=== PATIENT | female | born 1990 | race Two or more races ===

== ENCOUNTER 2024-02-16 10:31 | Emergency (ER) | payer BC, OTHER ==
[~2024-02-16] VITALS: Ht 162.6 cm; Wt 107.5 kg
[2024-02-16 10:46] VITALS: TEMP 99.1
[2024-02-16 10:54] VITALS: BP 121/73; PULSE 91; RESP 18; O2SAT 94
[2024-02-16 12:35] LABS: Urine Bacteria None Seen /hpf (None Seen)
[2024-02-16 12:46] LABS: Urine Blood 1+ /uL (Negative); Urine Clarity Turbid (Clear); Urine Color Light-Yellow (Yellow); Urine Protein, UAD Negative (Negative); Urine Specific Gravity 1.016 (1.001-1.035); Urine Urobilinogen Normal (Negative); Urine WBC 4 /hpf (0 - 5)
[2024-02-16] MEDS ORDERED: CEPH500C PO (12:58)
[2024-02-16] MEDS ORDERED: BACDST PO (12:58)
[2024-02-16] MEDS ORDERED: NABU-72 PO (12:58)
== END 2024-02-16 12:59 | disposition home or self-care (01) ==
LOC: ER 10:31
DX: N76.0 Acute vaginitis (principal); Z79.899 Other long term (current) drug therapy
CPT/HCPCS: 56405; 81001; 87077; 87186; 87205